=== PATIENT | male | born 1980 | race Caucasian/White ===

== ENCOUNTER → 2019-07-03 | Outpatient (REF) | payer OTHER | LOC: M LAB REF 11:55 | PROVIDERS: ATTEND Surgery | DX: Z30.2 Encounter for sterilization (principal) ==

== ENCOUNTER → 2019-08-22 | Outpatient (REF) | payer OTHER ==
[2019-08-22 11:41] LABS: SEMEN APPEARANCE OPAQUE (OPAQUE); SEMEN VISCOSITY LIQUID (LIQUID); SEMEN VOLUME 1.7 ml (2.0-5.0); WBC CONCENTRATION >1 M/ml (<=1 M/ml)
== END ==
LOC: M LAB REF 11:14
PROVIDERS: ATTEND Surgery
DX: Z30.2 Encounter for sterilization (principal)